=== PATIENT | male | born 1995 | race Two or more races ===

== ENCOUNTER 2019-11-29 12:40 | Emergency (ER) | payer OTHER ==
[2019-11-29] MEDS ORDERED: DIPH/PERTUSS(ACELL)/TETANUS VAC/PF 0.5 ML SYR (>=10YO) IM ONE (12:49)
--- NOTE | 2019-11-29 12:49 | ER Document Report ---
ED Medical Screen (RME) - General Chief Complaint: Laceration Stated Complaint: TIP OF LEFT THUMB CUT OFF Time Seen by Provider: 11/29/19 12:45 Mode of Arrival: Wheelchair Information source: Patient Notes: 24-year-old male presented to ED for avulsion injury to the distal phalanx of the left thumb is actively bleeding. Compression dressing has been applied he states he did it with a box car loader. He was at work when he cut his thumb. He is alert oriented a little dizzy. X-rays have been ordered and then he will be reevaluated. I have greeted and performed a rapid initial assessment of this patient. A comprehensive ED assessment and evaluation of the patient, analysis of test results and completion of medical decision making process will be conducted by an additional ED providers. Past Medical History - General Information source: Patient
--- NOTE | 2019-11-29 13:25 | RADIOLOGY REPORT (SQ) ---
EXAM DESCRIPTION: FINGER LEFT COMPLETED DATE/TIME: 11/29/2019 1:04 pm REASON FOR STUDY: Avulsion injury to the left thumb end COMPARISON: None. NUMBER OF VIEWS: 4 images left hand and thumb. LIMITATIONS: Considerably limiting external bandage artifact. This obscures bone and soft tissue de tail. FINDINGS: Allowing for artifact, there is significant soft tissue loss suggested along the distal th umb, palmar aspect. No underlying displaced fracture, however there is suggested mild bone loss hugo g the ulnar aspect of the tuft of the distal phalanx. No dislocation or subluxation OTHER: No other significant finding. IMPRESSION: Distal thumb injury. Loss of soft tissue and probable bone tuft distal phalanx. Consid erably limiting external artifact. TECHNICAL DOCUMENTATION: JOB ID: [id number] Reading location - IP/workstation name: [email or web address]
--- NOTE | 2019-11-29 14:55 | ER Document Report ---
HPI - HPI Pain Level: 4 Notes: Patient is a 24-year-old male no significant past medical history presents complaining of laceration injury to his left thumb prior to arrival by a box order person. His tetanus was updated in triage. He is able to move his thumb without difficulty. He has noticed quite a bit of bleeding so he is kept it wrapped. No obvious numbness or tingling that he is noted. Denies any headache, fever, neck pain, URI, sore throat, chest pain, palpitations, syncope, cough, shortness of breath, wheeze, dyspnea, abdominal pain, nausea/vomiting/diarrhea, urinary retention, dysuria, hematuria, loss of control of bowel or bladder, numbness/tingling, saddle anesthesia, muscle paralysis, or rash. - ROS Systems Reviewed and Negative: Yes All other systems reviewed and negative - REPRODUCTIVE Reproductive: DENIES: : <YUNIOR CALABRESE - Last Filed: 11/29/19 18:39> <WENDIE COLBERT - Last Filed: 11/29/19 20:57> - HPI Time Seen by Provider: 11/29/19 12:45 Past Medical History - General Information source: Patient - Social History Smoking Status: Current Some Day Smoker Chew tobacco use (# tins/day): No Frequency of alcohol use: None Drug Abuse: None Family History: Reviewed & Not Pertinent Patient has suicidal ideation: No Patient has homicidal ideation: No <YUNIOR CALABRESE - Last Filed: 11/29/19 18:39> Vertical Provider Document - CONSTITUTIONAL Agree With Documented VS: Yes Notes: PHYSICAL EXAMINATION: GENERAL: Well-appearing, well-nourished and in no acute distress. HEAD: Atraumatic, normocephalic. NECK: Normal range of motion, supple without lymphadenopathy. No midline tenderness. LUNGS: Breath sounds clear to auscultation bilaterally and equal. No wheezes rales or rhonchi. HEART: Regular rate and rhythm without murmurs, rubs, gallops. Musculoskeletal: Lt hand: + avulsion skin and partial bone appearing injury ulnar distal thumb. + arterial bleed noted. No erythema, warmth, ecchymosis, or swelling noted. N/V intact distal. FROM to passive/active. Extremities: No cyanosis, clubbing, or edema b/l. Peripheral pulses 2+. Capillary refill less than 3 seconds. NEUROLOGICAL: Normal speech, normal gait. Normal sensory, motor exams otherwise unremarkable PSYCH: Normal mood, normal affect. SKIN: see above. No rash - INFECTION CONTROL TRAVEL OUTSIDE OF THE [place] IN LAST 30 DAYS: No <YUNIOR CALABRESE - Last Filed: 11/29/19 18:39> Course - Re-evaluation Re-evalutation: 11/29/19 15:59 Dr. Colbert was consulted who also eval'd the patient. Pt appears to have an avulsion skin and bone injury to the ulnar distal thumb with an arterial bleed noted. Dr. colbert recommended digital block with TXA/L.E.T. combo tight compression wrap. We will now wait approx 30 minutes and reassess. 11/29/19 16:35 Pt still has some leaking, but not spritzing from the wound. Another pressure wrapped applied. 11/29/19 17:[address] quick-clot wrap next. Call placed to Dr. Layton. 11/29/19 18:00 The 2nd wrap did stop the bleeding. Quick clot placed with dressing. I did speak with Dr. Layton, Ortho, who recommends just wrapping and placing on Clindamycin. Daily soap/water and xeroform dressing changes. F/u in his office on Tuesday. Wound instructions reviewed. No further work-up warranted at this time. See x-ray. Patient is nontoxic-appearing and is tolerating p.o. without difficulty. Vitals are acceptable. Patient to return to the ED with any other worsening/concerning symptoms. Patient is in agreement. Tdap updated today. - Vital Signs Vital signs: Temp Pulse Resp BP Pulse Ox 97.8 F 57 L 18 142/67 H 100 11/29/19 12:45 11/29/19 12:45 11/29/19 12:45 11/29/19 12:45 11/29/19 12:45 <YUNIOR CALABRESE - Last Filed: 11/29/19 18:39> - Re-evaluation Re-evalutation: 11/29/19 20:56 I did personally see and examined this patient in conjunction with the physician household assistant Yunior Calabrese. Patient had a laceration where he avulsed the medial aspect of his left thumb with a box knife and there appears to be some bone missing. On physical examination he does have a 1-1/2 to 2 cm piece of skin and subcutaneous tissue with a small amount of bone missing, initially there was some bleeding that looked like it was coming from a small arterial, with direct pressure, TXA and L.E.T. as well as direct pressure with quick clot. Bleeding was well controlled. Patient will continue to follow-up with Dr. Layton. - Vital Signs Vital signs: Temp Pulse Resp BP Pulse Ox 98.3 F 59 L 16 124/78 100 11/29/19 18:48 11/29/19 18:48 11/29/19 18:48 11/29/19 18:48 11/29/19 18:48 <WENDIE COLBERT - Last Filed: 11/29/19 20:57> Procedures - Laceration/Wound Repair Left Thumb Wound length (cm): 3 Wound's Depth, Shape: Other - avulsion skin/bone injury Laceration pre-procedure: Sterile PPE donned, Chloraprep applied, Sterile drapes applied Anesthetic type: 1% Lidocaine Volume Anesthetic (mLs): 4 - digit block with 0.25% bupiv. Wound explored: Clean Irrigated w/ Saline (mLs): 300 Wound Repaired With: Other - dressing, TXA, L.E.T. Complications: No <YUNIOR CALABRESE - Last Filed: 11/29/19 18:39> Discharge <YUNIOR CALABRESE - Last Filed: 11/29/19 18:39> <WENDIE COLBERT - Last Filed: 11/29/19 20:57> - Discharge Clinical Impression: Open avulsion fracture of left thumb Qualifiers: Encounter type: initial encounter Qualified Code(s): S62.502B - Fracture of unspecified phalanx of left thumb, initial encounter for open fracture Condition: Stable Disposition: HOME, SELF-CARE Instructions: Soap Cleansing ([facility]) Additional Instructions: Keep the skin clean Wash with soap and water as reviewed with daily dressing changes using Xeroform Tylenol/ibuprofen if needed Take medication as directed Monitor for any worsening symptoms Recheck with your PCM in 3-5 days Follow-up with orthopedics on Tuesday Return to the ED with any worsening symptoms and/or development of fever, headache, chest pain, palpitations, syncope, shortness of breath, trouble breathing, abdominal pain, n/v/d, abscess, purulent discharge, red streaks, worsening swelling, or other worsening symptoms that are concerning to you. Prescriptions: Clindamycin HCl 300 mg PO QID #40 capsule Forms: Elevated Blood Pressure, Smoking Cessation Education, Return to Work Referrals: ANNMARIE LAYTON MD [ACTIVE PROVISIONAL STAFF] - 12/03/19
[2019-11-29] MEDS ORDERED: TRANEXAMIC ACID INJ/PF 1,000 MG/10 ML SDV ONE (15:15)
[2019-11-29] MEDS ORDERED: BUPIVACAINE HCL 0.75% INJ/PF (7.5 MG/1 ML) 10 ML SDV INJ ONE (15:39)
[2019-11-29] MEDS ORDERED: CEPHALEXIN 500 MG CAPSULE PO ONE (16:00)
[2019-11-29] MEDS ORDERED: TRANEXAMIC ACID INJ/PF 1,000 MG/10 ML SDV TOP PRN (16:54)
[2019-11-29 18:50] VITALS: BP 124/78
== END 2019-11-29 18:49 | disposition home or self-care (01) ==
LOC: ER 12:40
DX: S62.502B Fracture of unspecified phalanx of left thumb, initial encounter for open fracture (principal); W26.8XXA Contact with other sharp object(s), not elsewhere classified, initial encounter; Y99.0 Civilian activity done for income or pay; Z23 Encounter for immunization; F17.200 Nicotine dependence, unspecified, uncomplicated
CPT/HCPCS: 99283; 73140; 90715; 64450; J3490